=== PATIENT | female | born 1990 | race Caucasian/White ===

== ENCOUNTER 2020-06-07 14:04 | Outpatient (RCR) | payer OTHER, SELFPAY ==
--- NOTE | 2020-06-07 16:48 | PTOPEVAL ---
Thank you for referring Eloisa Brambila to [facility].? The patient is scheduled to be seen for therapy? ____x/week for ___ weeks. Please review, sign, date and return this plan of care DES. I agree with and certify that the following plan of care is medically necessary. Referring Physician Date Admitting Provider: Attending Provider: Dariusz Hatch PA-C Referring Provider: LawsonPT Outpatient Evaluation Start: 06/07/20 14:09 Freq: Status: Active Protocol: Document 06/07/20 14:05 [facility] (Rec: 06/07/20 15:15 [facility] [id number]) Therapy Assessment Status Assessment Status Assessment Status Evaluation Evaluation Information Problem Diagnosis bilateral knee pain Onset 05/19/20 Subjective Information patient reports no injury to Query Text:As Reported By Patient/ the bialteral knees. she Family reports the R knee has been worse for a longer time, but reports her L knee has been increased in pain for about 20 days. she reports she had swelling and tightness initially in the L knee but reports she is now having increased swelling and pain in the L knee over the last week . she reports she has the greatest issues with increased activities. she also reports the R knee has increased pain with sitting for a long time/ driving. Prior Level of Function Comments Additional Prior Level of Function patient reports she has been Comments limited in her participation in working out due to her pain . she reports she is also limited in how long she can drive or sit due to pain. Pain Assessment Timing of Pain Assessment Timing of Pain Assessment Assessment Pain Scale Pain Scale Used Numeric (1 - 10) Self Report Pain Assessment Bilateral Knee(s) Reported Pain Level 0 Greatest Pain Intensity 4 Pain Score Pain Score 0: Self Report Interventions Used Interventions Used By Clinicians Activity or ADL's,Education, Exercise Lower Extremity Range of Motion General Lower Extremity Range of Motion Gross Lower Extremity Range of Motion 0-135 degrees bilateral knee Comments AROM mobility Lower Extremity Muscle Strength Testing Hip Strength Bilateral Hip Flexion Strength
== END 2020-08-01 23:59 | disposition home or self-care (01) ==
LOC: CHSPT 14:04
PROVIDERS: Visit Provider Physician Assistant Medical
DX: M25.561 Pain in right knee (principal); M25.562 Pain in left knee; M62.9 Disorder of muscle, unspecified
CPT/HCPCS: 97110; 97140; 97161; 97530

== ENCOUNTER 2021-01-08 13:08 | Emergency (ER) | payer OTHER, SELFPAY ==
--- NOTE | ~2021-01-08 | XR_ITS ---
EXAMINATION: XR knee LT 3V DATE: 01/08/2021 14:09 INDICATION: Posterior left knee pain and swelling after jumping injury with pop TECHNIQUE: Anteroposterior, sunrise, flexed lateral and crosstable lateral views of the affected knee were obtained COMPARISON: None. FINDINGS: Alignment is normal. No fracture. No joint effusion/layering lipohemarthrosis. Soft tissues are unre markable. IMPRESSION: 1. Negative left knee radiographs. Reviewed, dictated and finalized at location A.
[2021-01-08 13:10] VITALS: BP 146/69; PULSE 99; RESP 20; TEMP 36.4; O2SAT 98
--- NOTE | 2021-01-08 13:12 | ED.LOWEXIN ---
HPI - Extremity Injury (Lower) General Chief Complaint: Extremity Injury, Lower Stated Complaint: L knee pain Source: patient and RN notes reviewed Mode of arrival: wheelchair Limitations: no limitations History of Present Illness complaint: knee injury Onset (ago): day(s) (1) Injury: Left: knee Type of Injury: hyperextension Place: home Severity: severe Relieving factors: nothing Exacerbating factors: weight bearing and movement Context: jumping Associated symptoms: snap/pop sensation and able to partially bear weight Other symptoms: none Treatments prior to arrival: cold therapy Related Data Allergies Allergy/AdvReac Type Severity Reaction Status Date / Time amoxicillin AdvReac Intermediate severe Verified 03/13/19 13:39 nausea and vomiting Review of Systems Review of Systems: All systems reviewed & are unremarkable except as noted in HPI and below PMFSH Past Medical History Medical History (Updated 01/08/21 @ 15:48 by Ric Rizvi MD) No active medical problems Surgical History Surgical History (Updated 01/08/21 @ 15:48 by Ric Rizvi MD) H/O dilation and curettage Family History Family History Father Family history of rheumatoid arthritis Other Diabetes mellitus Social History Social History Smoking status: Current every day smoker Alcohol intake: current Exam Const: General: healthy appearing and no acute distress Nutritional Appearance: well nourished Orientation/consciousness: patient oriented x3 Other: female nurse in room during examination. HENMT: Head: normal to inspection Ears: external ears normal Eyes: General: appearance normal, both eyes and all related structures Conjunctivae: conjunctivae normal Pupils: Equal, round and reactive pupils present EOM: EOMs intact bilaterally Neck: Neck: normal visual inspection and no lymphadenopathy Resp: Effort & Inspection: normal respiratory effort Auscultation: clear to auscultation bilaterally Cardio: Rate: regular rate Rhythm: regular rhythm GI: GI Palp: Yes Soft to palpation and No Tenderness to palpation present (GI) Auscultation: normal bowel sounds Back/Spine/Pelvis: Cervical Spine: cervical ROM normal Thoracic/Lumbar Spine: thoraco-lumbar ROM normal Skin: General skin exam: normal color Rashes: no rashes Neuro: General: patient oriented x3, moves all extremities and no focal motor deficits Speech: normal speech Extrem: General: normal to inspection and no pedal edema Left lower extremity: knee Details: tenderness Location: of the popliteal fossa (severe); not of the medial joint line and not of the lateral joint line, swelling Location: of the popliteal fossa, knee ligament exam normal and Amalia's Test Details: negative medially and laterally Psych: Appearance: grossly normal and well kempt Mental Status: mental status grossly normal Affect: normal affect Attitude: cooperative Thought content: Yes Normal thought content present Course Vital Signs Vital signs: Vital Signs Temperature 36.4 C 01/08/21 13:10 Pulse Rate 99 01/08/21 13:10 Respiratory Rate 20 01/08/21 13:10 Blood Pressure 146/69 H 01/08/21 13:10 Pulse Oximetry 98 01/08/21 13:10 Temperature 36.4 C 01/08/21 13:10 Pulse Rate 99 01/08/21 13:10 Respiratory Rate 15 01/08/21 14:41 Blood Pressure 146/69 H 01/08/21 13:10 Pulse Oximetry 98 01/08/21 13:10 Discharge Plan Discharge Clinical Impression: Left knee sprain Qualifiers: Encounter type: initial encounter Involved ligament of knee: unspecified ligament Qualified Code(s): S83.92XA - Sprain of unspecified site of left knee, initial encounter Patient Disposition: Home, Self-Care Condition: Stable Instructions: Knee Sprain (ED) Additional Instructions: use crutches as needed. Recommend you use a knee immobilizer. Follow
[2021-01-08] MEDS: KETOROLAC (*BKC) 60 MG/2 ML VIAL IM (14:27)
[2021-01-08 14:41] VITALS: RESP 15
== END 2021-01-08 14:44 | disposition home or self-care (01) ==
PROVIDERS: Emergency Provider Emergency Medicine; PCP Family Medicine
DX: S83.92XA Sprain of unspecified site of left knee, initial encounter (principal)
CPT/HCPCS: 73562; 96372; 99283; J1885

== ENCOUNTER 2021-01-13 06:50 | Outpatient (CLI) | payer OTHER, SELFPAY ==
--- NOTE | ~2021-01-13 | MR_ITS ---
EXAMINATION: MR knee LT wo con DATE: 01/13/2021 07:43 INDICATION: Left knee pain. TECHNIQUE: Magnetic resonance imaging (MRI) of the left knee was performed without intravenous contra st. Sequences included axial PD-weighted FS FSE, coronal PD-weighted FSE and PD-weighted FS FSE, sagi ttal PD-weighted FSE, and sagittal T2-weighted FS FSE. COMPARISON: Left knee radiographs 01/08/2021 FINDINGS: Medial compartment: Medial meniscus is normal. Medial compartment cartilage is normal. Lateral compartment: There is a vertical tear of body of lateral meniscus. Lateral compartment cartilage is normal. Patellofemoral compartment: Patellar cartilage is normal. Trochlear cartilage is normal. Ligaments and tendons: The anterior and posterior cruciate ligaments are normal. Medial collateral ligament is normal. There are changes of prior sprain of fibular collateral ligament characterized by increased signal intensi ty proximally. The extensor mechanism is normal. Fluid: There is a small knee joint effusion. There is trace fluid in a Rosario's cyst. There is mild superfici al infrapatellar bursitis. IMPRESSION: 1. Vertical tear of body of lateral meniscus. 2. Small knee joint effusion. Reviewed, dictated and finalized at location A.
== END 2021-01-13 06:51 | disposition home or self-care (01) ==
LOC: CHSIMG 06:51
PROVIDERS: PCP Family Medicine; Visit Provider Orthopaedic Surgery
DX: M25.562 Pain in left knee (principal)
CPT/HCPCS: 73721

== ENCOUNTER 2021-02-28 01:14 | Day surgery (SDC) | payer OTHER, SELFPAY ==
[2021-02-28] VITALS (7 sets, daily range): BP systolic 110–120; BP diastolic 70–86; PULSE 58–83; RESP 10–20; TEMP 36.1–36.6; O2SAT 97–100; BMI 29.7
--- NOTE | 2021-02-28 07:19 | WPDHPUPDATE1 ---
History and Physical Update Update Date/Time: 02/28/21 07:19 History and Physical has been reviewed, including an updated exam of the patient. There are NO changes in the patient's condition. Risks, benefits, and alternatives have been discussed and questions answered. Patient agrees to proceed with procedure.
--- NOTE | 2021-02-28 12:08 | P.PNAN_ITS ---
Anes - Initial Pre Proc Eval Procedure: Operation Date: 02/28/21 13:30 Proposed Procedures p Left Knee Arthroscopy, Proceed As Indicated(Left) - Justin Gonzalez MD Date/Time: 02/28/21 12:08 Surgeon: Justin Gonzalez MD Pre Op Diagnosis: Left knee lateral meniscus tear Patient Data Age: 30 Gender: F Height: 1.65 m Weight: 82 kg Allergies Allergy/AdvReac Type Severity Reaction Status Date / Time amoxicillin AdvReac Severe Nausea and Verified 02/26/21 12:04 Vomiting Home Medications Medication Instructions Recorded Confirmed Type No Home Medications 02/26/21 02/26/21 History Patient hx anesthesia problems: none Family hx anesthesia problems: none PMFSH Past Medical History Medical History Left knee pain No active medical problems Surgical History Surgical History H/O dilation and curettage History of wisdom tooth extraction Family History Family History Father Family history of rheumatoid arthritis Other Diabetes mellitus Vaginal cancer Social History Social History Smoking packs per day: 0.25 Smoking cigarettes per day: 5.0 Years smoked: 10 Smoking pack-years: 2.50 Smoking status: Light tobacco smoker Tobacco type: cigarettes Second hand tobacco smoke exposure: No Alcohol intake: current Alcohol use details: 20 per month Substance use: never Substance use type: does not use Living arrangements: with family Additional living arrangements comments: [facility] [phone] Additional occupation/education comments: [employer] Gender identity (if verbalized by the patient): Female Sexual Orientation (if Verbalized by the Patient): Straight or Heterosexual Spiritual care concerns: No Anes - Eval Final PreProcedure Day of Procedure 02/28/21 12:08 Patient weight: overweight Heart: regular rate and rhythm Lungs: clear to auscultation Airway: Mallampati scale class II Neurological: alert and oriented Last oral intake: >/= 8 hours ASA classification: II Emergent: no Anesthetic plan: proceed Anesthesia type and monitoring: general LMA and standard monitoring Informed Consent: The patient's anesthetic plan and its attendant risks and benefits were discussed with the patient/family/POA. Questions were solicited and answers provided to the satisfaction of the patient/family/POA.
[2021-02-28] MEDS: ACETAMINOPHEN 500 MG TABLET 1000 MG PO (12:46)
[2021-02-28] MEDS: CELECOXIB 200 MG CAPSULE PO (12:47)
[2021-02-28] MEDS: LACTATED RINGERS 1,000 ML 30 ML IV CONT ×2 (13:03→14:45)
[2021-02-28] MEDS: ceFAZolin 2 GM/D5W 50 ML 2 GM/50 ML BAG IVPB (13:27)
--- NOTE | 2021-02-28 13:29 | PM.IMHP ---
H&P: HPI History of Present Illness Date/Time: 02/28/21 13:29 30 year old pt presents today with Lt knee pain, she states that she was doing some exercises on 01/07/21-2d post injury, and did a jump and came down on the knee wrong felt a pop in the posterior aspect of the knee followed by extreme pain. She stated she went to the ER on 01/08/21 d/t not being able to weight bear on the knee at that time. The ER did an xray and gave the pt. an anti-inflammatory , instructed to use crutches and f/u with Ortho. Pt. states that this has occurred about 6-8 months ago with pain in the knee with swelling. Pt. here had an MRI and wants to discuss the next POC. Involved knee: left Onset: sudden Location of pain: posterior Pain scale (0-10): 7 Character: throbbing and other (sharp at times. ) Timing of pain: constant Exacerbated by: weight bearing, stairs and prolonged activity Relieved by: elevation, ice, rest, NSAIDs and other (crutches ) Associated symptoms: Reports swelling and instability History of occupational/recreational activity with repetitive motion: Yes History of prior knee injury: Yes Date: 01/07/21 Chief Complaint: LEFT KNEE PAIN Review of Systems Review of Systems: All systems reviewed & are unremarkable except as noted in HPI and below PMFSH Past Medical History Medical History Left knee pain No active medical problems Surgical History Surgical History H/O dilation and curettage History of wisdom tooth extraction Family History Family History Father Family history of rheumatoid arthritis Other Diabetes mellitus Vaginal cancer Social History Social History Smoking packs per day: 0.25 Smoking cigarettes per day: 5.0 Years smoked: 10 Smoking pack-years: 2.50 Smoking status: Light tobacco smoker Tobacco type: cigarettes Second hand tobacco smoke exposure: No Alcohol intake: current Alcohol use details: 20 per month Substance use: never Substance use type: does not use Living arrangements: with family Additional living arrangements comments: [facility] [phone] Additional occupation/education comments: [employer] Gender identity (if verbalized by the patient): Female Sexual Orientation (if Verbalized by the Patient): Straight or Heterosexual Spiritual care concerns: No Meds Home Medications and Allergies Home Medications Medication Instructions Recorded Confirmed Type No Home Medications 02/26/21 02/26/21 History Allergies Allergy/AdvReac Type Severity Reaction Status Date / Time amoxicillin AdvReac Severe Nausea and Verified 02/28/21 12:43 Vomiting Vital Signs Vital Signs - 24 hr 02/28/21 12:24 Temperature 36.6 C Pulse Rate 75 Respiratory Rate 16 Blood Pressure 113/70 Pulse Oximetry 100 Exam Const: General: healthy appearing and no acute distress Nutritional Appearance: well nourished Orientation/consciousness: patient oriented x3 Other: female nurse in room during examination. HENMT: Head: normal to inspection Ears: external ears normal Eyes: General: appearance normal, both eyes and all related structures Conjunctivae: conjunctivae normal Pupils: Equal, round and reactive pupils present EOM: EOMs intact bilaterally Neck: Neck: normal visual inspection and no lymphadenopathy Resp: Effort & Inspection: normal respiratory effort Auscultation: clear to auscultation bilaterally Cardio: Rate: regular rate Rhythm: regular rhythm GI: GI Palp: Yes Soft to palpation and No Tenderness to palpation present (GI) Auscultation: normal bowel sounds Back/Spine/Pelvis: Cervical Spine: cervical ROM normal Thoracic/Lumbar Spine: thoraco-lumbar ROM normal Skin: General skin exam: normal color Rashe
[2021-02-28] MEDS: BUPIVACAINE HCL 0.5% PF 30 ML VIAL INFILTRATE (13:57)
--- NOTE | 2021-02-28 14:50 | P.OP_ITS ---
Procedure Note - Detailed Date of Procedure 02/28/21 Pre-op Diagnosis Left knee lateral meniscus tear Post-op Diagnosis same Procedure Performed LEFT KNEE SCOPE Surgeon Justin Gonzalez MD Anesthesia general Description of Procedure PATIENT WAS TAKEN TO THE OR. LEFT LEG WAS PREPPED AND DRAPED STERILE. TROCARS W ERE PLACED IN THE USUAL FASHION. CAMERA WAS INTRODUCED. THERE WAS NO CHONDROMALACIA TO THE PATELLA FEMORAL JOINT. THERE WAS A LOT OF SYNOVITIS IN ALL COMPARTMENTS. THE MEDIAL COMPARTMENT SHOWED NO CHONDROMALACIA TO THE MEDIAL FEMORAL CONDYLE OR MEDIAL PLATEAU. A SHAVER WAS USED TO PREFORM A CHONDROPLASTY. THERE WAS NO TEAR TO THE MEDIAL MENISCUS. THE ACL WAS INTACT. THERE WERE TEARS TO THE LATERAL MENISCUS. THERE WAS A TEAR TO THE MAIN BODY OF THE MENISCUS AND ONE TO THE ROOT. THE ROOT TER ALSO HAD A POSTERIOR COMPONENT WHICH WAS EXTENDING DISTAL INTO THE CAPSULAR RECESS. THIS WAS EXTRACTED AND WAS EXCISED WITH A BITER AND A SHAVER DOWN TO A SMOOTH BASE. THE REST OF THE TEAR WAS ALSO RESECTED DOWN TO A SMOOTH BASE. THE LATERAL COMPARTMENT HAD MINIMAL CHONDROMALACIA. CHONDROPLASTY WAS PREFORMED. A SYNOVECTOMY WAS PREFORMED WELL. THE PATELLO FEMORAL JOINT HAD A NEGLIGENT AMOUNT OF CHONDROMALACIA. SYNOVECTOMY WAS PREFORMED IN THE SUPERIOR MEDIAL COMPARTMENT. THE WOUNDS WERE A PPROXIMATED WITH 4.0 NYLON. STERILE DRESSING WAS APPLIED. PATIENT WAS EXTUBATED. Estimated Blood Loss 5 Complications No immediate complications Condition stable Disposition PACU
[2021-02-28] MEDS: fentaNYL CITRATE INJ (*CRX) 100 MCG/2 ML VIAL 25 MCG IV PUSH ×6 (14:52→15:38)
[2021-02-28] MEDS: oxyCODONE HCL (*CRX) 5 MG TAB IR PO (16:51)
== END 2021-02-28 17:05 | disposition home or self-care (01) ==
PROVIDERS: PCP Family Medicine; Visit Provider Orthopaedic Surgery
PROC: (CPT 29870; principal; 2021-02-28 13:30)
DX: S83.282A Other tear of lateral meniscus, current injury, left knee, initial encounter (principal); X50.0XXA Overexertion from strenuous movement or load, initial encounter; Y93.B9 Activity, other involving muscle strengthening exercises; M94.262 Chondromalacia, left knee; M65.862 Other synovitis and tenosynovitis, left lower leg; F17.210 Nicotine dependence, cigarettes, uncomplicated
CPT/HCPCS: 29881; A9270; J0690; J2250; J3010; J7120

== ENCOUNTER 2021-03-19 14:07 | Outpatient (RCR) | payer OTHER, SELFPAY ==
--- NOTE | 2021-03-19 16:21 | PTOPEVAL ---
Thank you for referring Eloisa Brambila to [facility].? The patient is scheduled to be seen for therapy? _2___x/week for 8 visits. Please review, sign, date and return this plan of care DES. I agree with and certify that the following plan of care is medically necessary. Referring Physician Date Admitting Provider: Attending Provider: Justin Gonzalez MD Referring Provider: *PT Outpatient Evaluation Start: 03/19/21 14:12 Freq: Status: Active Protocol: Document 03/19/21 14:12 [facility] (Rec: 03/19/21 14:45 [facility] [id number]) Therapy Assessment Status Assessment Status Assessment Status Evaluation Outpatient Past Medical History Neurological History Hx Neurological Disorders No Significant History Cardiovascular History Hx Cardiac Disorders No Significant History Respiratory History Hx Respiratory Disorders No Significant History Gastrointestinal History Hx Gastrointestinal Disorders No Significant History Genitourinary History Hx Genitourinary Disorders No Significant History Musculoskeletal History Hx Orthopedic Surgery Yes: RT ANKLE FX; MAJOR WRIST SPRAIN IN PAST Hx Other Musculoskeletal Disorders Yes: LT KNEE MENISCUS Hematological History Hx Hematological Disorders No Significant History Endocrine History Hx Endocrine Disorders No Significant History HEENT History Hx HEENT Disorders No Significant History Integumentary History Hx Skin Disorders No Significant History Reproductive History Hx Other Reproductive Disorders Yes: D&C MISSED AB IN PAST Psychosocial History Hx Psychiatric Disorders No Significant History Pain History History of Any Previous or Ongoing No Significant History Instance of Pain Anesthesia History Hx Anesthesia Reactions No Significant History Evaluation Information Problem Diagnosis left knee arthroscopy Onset 02/28/21 Subjective Information Pt. reports that she underwent Query Text:As Reported By Patient/ knee surgery on 02/28/21. Pt. Family reports she has been exercising at home since surgery. She reports that bending causes the most pain. She reports that she notices tightness in the back of the entire left leg. She states that she still notices alot of swelling in the left knee. She reports that her goal for therapy is to be able to return to weight lifting and running. Prior Level of Function Comments
--- NOTE | 2021-04-13 09:14 | PTOPEVAL ---
Thank you for referring Eloisa Brambila to [facility].? The patient is scheduled to be seen for therapy? __2__x/week for 4 visits. Please review, sign, date and return this plan of care DES. I agree with and certify that the following plan of care is medically necessary. Referring Physician Date Admitting Provider: Attending Provider: Justin Gonzalez MD Referring Provider: *PT Outpatient Evaluation Start: 03/19/21 14:12 Freq: Status: Active Protocol: Document 04/13/21 08:05 [facility] (Rec: 04/13/21 09:13 [facility] [id number]) Therapy Assessment Status Assessment Status Assessment Status Progress Outpatient Past Medical History Neurological History Hx Neurological Disorders No Significant History Cardiovascular History Hx Cardiac Disorders No Significant History Respiratory History Hx Respiratory Disorders No Significant History Gastrointestinal History Hx Gastrointestinal Disorders No Significant History Genitourinary History Hx Genitourinary Disorders No Significant History Musculoskeletal History Hx Orthopedic Surgery Yes: RT ANKLE FX; MAJOR WRIST SPRAIN IN PAST Hx Other Musculoskeletal Disorders Yes: LT KNEE MENISCUS Hematological History Hx Hematological Disorders No Significant History Endocrine History Hx Endocrine Disorders No Significant History HEENT History Hx HEENT Disorders No Significant History Integumentary History Hx Skin Disorders No Significant History Reproductive History Hx Other Reproductive Disorders Yes: D&C MISSED AB IN PAST Psychosocial History Hx Psychiatric Disorders No Significant History Pain History History of Any Previous or Ongoing No Significant History Instance of Pain Anesthesia History Hx Anesthesia Reactions No Significant History Evaluation Information Problem Diagnosis left knee arthroscopy Onset 02/28/21 Subjective Information Pt. reports that she is doing Query Text:As Reported By Patient/ better since initial Family evaluation. She reports that ROM has improved and she notices improve strength. She states that she still has difficulty with going down steps or squatting. She reports that she would like to continue PT focusing on improved comfort with stairs and squatting activities. Pain Assessment Timing of Pain Assessment Timing of Pain Assessment Pre-Treatment Pain Scale Pain Scale Used Numeric (1 - 10) Self Report Pain Assessment Left Knee(s) Reported Pain
--- NOTE | 2021-05-02 17:17 | PTOPEVAL ---
Thank you for referring Eloisa Brambila to [facility].? The patient is scheduled to be seen for therapy? ____x/week for ___ weeks. Please review, sign, date and return this plan of care DES. I agree with and certify that the following plan of care is medically necessary. Referring Physician Date Admitting Provider: Attending Provider: Justin Gonzalez MD Referring Provider: *PT Outpatient Evaluation Start: 03/19/21 14:12 Freq: Status: Active Protocol: Document 05/02/21 13:35 [facility] (Rec: 05/02/21 17:15 [facility] [id number]) Therapy Assessment Status Assessment Status Assessment Status Re-evaluation Outpatient Past Medical History Neurological History Hx Neurological Disorders No Significant History Cardiovascular History Hx Cardiac Disorders No Significant History Respiratory History Hx Respiratory Disorders No Significant History Gastrointestinal History Hx Gastrointestinal Disorders No Significant History Genitourinary History Hx Genitourinary Disorders No Significant History Musculoskeletal History Hx Orthopedic Surgery Yes: RT ANKLE FX; MAJOR WRIST SPRAIN IN PAST Hx Other Musculoskeletal Disorders Yes: LT KNEE MENISCUS Hematological History Hx Hematological Disorders No Significant History Endocrine History Hx Endocrine Disorders No Significant History HEENT History Hx HEENT Disorders No Significant History Integumentary History Hx Skin Disorders No Significant History Reproductive History Hx Other Reproductive Disorders Yes: D&C MISSED AB IN PAST Psychosocial History Hx Psychiatric Disorders No Significant History Pain History History of Any Previous or Ongoing No Significant History Instance of Pain Anesthesia History Hx Anesthesia Reactions No Significant History Evaluation Information Problem Diagnosis left knee arthroscopy Onset 02/28/21 Subjective Information patient reports she is having Query Text:As Reported By Patient/ new swelling and pain in the L Family knee for about 2 weeks. she reports since she did a single leg press she has had some swelling since the next day. she reports she went to the surgeon who offered to drain the fluid, but patient declined. she is worried there is something that did not heal from her surgery. Pain Assessment Timing of Pain Assessment Timing of Pain Assessment Assessment Pain Scale Pain Scale Used Numeric (1 - 10) Self Report Pain Assessment Left Knee(s) Reported P
--- NOTE | 2021-05-24 16:46 | PTOPEVAL ---
Thank you for referring Eloisa Brambila to [facility].? The patient is scheduled to be seen for therapy? ____x/week for ___ weeks. Please review, sign, date and return this plan of care DES. I agree with and certify that the following plan of care is medically necessary. Referring Physician Date Admitting Provider: Attending Provider: Justin Gonzalez MD Referring Provider: *PT Outpatient Evaluation Start: 03/19/21 14:12 Freq: Status: Active Protocol: Document 05/24/21 15:48 ACR (Rec: 05/24/21 16:32 ACR [id number]) Therapy Assessment Status Assessment Status Assessment Status Progress Outpatient Past Medical History Neurological History Hx Neurological Disorders No Significant History Cardiovascular History Hx Cardiac Disorders No Significant History Respiratory History Hx Respiratory Disorders No Significant History Gastrointestinal History Hx Gastrointestinal Disorders No Significant History Genitourinary History Hx Genitourinary Disorders No Significant History Musculoskeletal History Hx Orthopedic Surgery Yes: RT ANKLE FX; MAJOR WRIST SPRAIN IN PAST Hx Other Musculoskeletal Disorders Yes: LT KNEE MENISCUS Hematological History Hx Hematological Disorders No Significant History Endocrine History Hx Endocrine Disorders No Significant History HEENT History Hx HEENT Disorders No Significant History Integumentary History Hx Skin Disorders No Significant History Reproductive History Hx Other Reproductive Disorders Yes: D&C MISSED AB IN PAST Psychosocial History Hx Psychiatric Disorders No Significant History Pain History History of Any Previous or Ongoing No Significant History Instance of Pain Anesthesia History Hx Anesthesia Reactions No Significant History Evaluation Information Problem Diagnosis L knee arthroscopy Onset 02/28/21 Subjective Information Patient reports since she got Query Text:As Reported By Patient/ her knee drained last friday Family she has been feeling really good. She states that she still feels weak and is nervous about returning to the gym. She states that when she performs a squat it feels tight and like it is going to fill up with fluid again. Pain Assessment Timing of Pain Assessment Timing of Pain Assessment Assessment Pain Scale Pain Scale Used Numeric (1 - 10) Self Report Pain Assessment Left Knee(s) Reported Pain Level 0 Greatest Pain Intensity 5 Pain Score Pain Score 0: Self R
== END 2021-07-02 17:46 | disposition home or self-care (01) ==
LOC: CHSPT 14:07
PROVIDERS: Visit Provider Orthopaedic Surgery
DX: Z98.890 Other specified postprocedural states (principal)
CPT/HCPCS: 97014; 97016; 97110; 97161; 97530; G0283

== ENCOUNTER 2022-02-01 12:53 | Outpatient (CLI) | payer OTHER, SELFPAY ==
[2022-02-01 13:04] LABS: Basophils Absolute Auto 0.05 K/mm3 (0.00-0.10); Eosinophils Absolute Auto 0.06 K/mm3 (0.02-0.50); Eosinophils Percent Auto 1.1 % (1.0-6.0); Hematocrit 43.1 % (35.0-49.0); Hemoglobin 14.4 g/dL (12.0-15.0); Immature Granulocyte Absolute 0.03 K/mm3 (0.00-0.00); Immature Granulocyte Percent A 0.6 % (0.0-0.0); Lymphocytes Absolute Auto 0.89 K/mm3 (1.10-4.50); Mean Corpuscular HGB Conc 33.4 g/dL (32.0-36.0); Mean Corpuscular Hemoglobin 30.2 pg (27.0-31.0); Mean Corpuscular Volume 90.4 fL (78.0-102.0); Mean Platelet Volume 9.1 fl (9.2-11.8); Monocytes Absolute Auto 0.35 K/mm3 (0.10-0.90); Monocytes Percent Auto 6.7 % (2.0-11.0); Neutrophils Absolute Auto 3.9 K/mm3 (1.7-7.2); Neutrophils Percent Auto 73.6 % (50.0-70.0); Platelet Count Result 269 K/mm3 (150-420); Red Blood Count 4.77 M/mm3 (4.20-5.40); Red Cell Distribution Width 12.3 % (11.6-14.4); White Blood Count 5.2 K/mm3 (4.8-10.8)
[2022-02-01 13:48] LABS: Alanine Aminotransferase 28 U/L (14-59); Albumin Level 4.3 g/dL (3.4-5.0); Alkaline Phosphatase 102 U/L (46-116); Anion Gap 8 mmol/L (8-16); Aspartate Amino Transferase 18 U/L (15-37); Bilirubin,Total 0.4 mg/dL (0.00-1.00); Blood Urea Nitrogen 15 mg/dL (7-18); Calcium 8.8 mg/dL (8.5-10.1); Carbon Dioxide 28 mmol/L (21-32); Chloride 101 mmol/L (98-108); Estimated Glomerular Filt Rate > 60; Glucose 97 mg/dL (70-99); Osmolality Calculated 284 mOsm/kg (285-295); Potassium 4.2 mmol/L (3.5-5.1); Sodium 137 mmol/L (136-145); Total Protein 7.6 g/dL (6.4-8.2)
== END 2022-02-01 12:54 | disposition home or self-care (01) ==
LOC: CHSLAB 12:55
PROVIDERS: PCP Family Medicine; Visit Provider Family Medicine
DX: R53.83 Other fatigue (principal)
CPT/HCPCS: 36415; 80053; 84443; 85025

== ENCOUNTER 2022-02-05 09:33 | Outpatient (CLI) | payer OTHER, SELFPAY ==
--- NOTE | ~2022-02-05 | XR_ITS ---
EXAMINATION: XR chest 2V 02/05/2022 10:41 INDICATION: Dyspnea PROCEDURE: 2 view chest COMPARISON: No prior studies for comparison. FINDINGS: The lungs are clear. The cardiomediastinal silhouette is within normal limits. There are no pleural effusions. There is no pneumothorax suspected. IMPRESSION: 1: NO ACUTE CARDIOPULMONARY DISEASE. Reviewed, dictated and finalized at location A.
== END 2022-02-05 09:34 | disposition home or self-care (01) ==
LOC: CHSIMG 09:35
PROVIDERS: PCP Family Medicine; Visit Provider Family Medicine
DX: J69.0 Pneumonitis due to inhalation of food and vomit (principal)
CPT/HCPCS: 71046

== ENCOUNTER 2022-02-21 12:58 | Outpatient (CLI) | payer OTHER, SELFPAY ==
--- NOTE | ~2022-02-21 | CT_ITS ---
EXAMINATION:CT diagnostic chest wo con DATE: 02/21/2022 13:20 INDICATION: Dyspnea. Chest pain. TECHNIQUE: Computed tomography (CT) of the chest was performed without intravenous contrast. Automate d exposure control and iterative reconstruction technique were employed. The dose-length product (DLP ) was 150.98 mGy-cm. COMPARISON: Chest 2 views 02/05/2022 FINDINGS: There is mild emphysema. There is minimal atelectasis in left lower lobe. No pleural effusi on. The heart size is normal. No pericardial effusion. There are no pathologically enlarged lymph nod es. There is mild thoracic spondylosis. IMPRESSION: 1. Mild emphysema. Reviewed, dictated and finalized at location A. IMPRESSION: 1. Mild emphysema.
== END 2022-02-21 12:59 | disposition home or self-care (01) ==
LOC: CHSIMG 13:01
PROVIDERS: PCP Family Medicine; Visit Provider Family Medicine
DX: J69.0 Pneumonitis due to inhalation of food and vomit (principal)
CPT/HCPCS: 71250

== ENCOUNTER 2022-03-01 12:13 | Outpatient (CLI) | payer OTHER, SELFPAY ==
[2022-03-04 21:12] LABS: Progesterone 19.3 ng/mL (***)
== END 2022-03-01 12:14 | disposition home or self-care (01) ==
LOC: CHSLAB 12:16
PROVIDERS: PCP Family Medicine; Visit Provider Obstetrics & Gynecology
DX: Z33.1 Pregnant state, incidental (principal)
CPT/HCPCS: 36415; 84144; 84702

== ENCOUNTER 2022-03-18 07:29 | Outpatient (CLI) | payer OTHER, SELFPAY ==
--- NOTE | ~2022-03-18 | US_ITS ---
EXAMINATION: US OB <=14 wk fetus w TV INDICATION: UNCERTAIN LMP TECHNIQUE: Sonography of the pelvis was performed by transabdominal and transvaginal techniques. COMPARISON: None. RESULT: Uterus: - Orientation: Anteverted - Size: 11.0 x 6.7 x 4.6 cm - Myometrium: Serpiginous anechoic area in the endometrium/myometrium of the left anterior front al region, approaching the second gestational tissues, may represent normal vascular tissue with or w ithout a small subgestational fluid collection. Gestation: - Intrauterine gestational sac: Single present - Yolk sac: Present. 2.4 mm. - Embryo: Single present. - [place] rump length: 0.75 cm, corresponding gestational age 6 weeks, 5 days -Gestational heart rate: present 126 bpm -Subgestational hematoma: Possible small collection as noted above. Right ovary: - Size : 2.5 x 2.2 x 2.0 cm - Normal sonographic appearance with physiologic follicles. Left ovary: - Size: 3.7 x 2.5 x 3.1 cm - Normal sonographic appearance with physiologic follicles. Pelvis free fluid: None. IMPRESSION: Single, live intrauterine gestation. Possible small subdural gestational fluid collection versus norm al adjacent vascular structures, consider short-term OB ultrasound follow-up. Estimated Gestational Age: 6 weeks, 5 days by crown rump length. NORMA by ultrasound 11/06/2022. Reviewed, dictated and finalized at location K. IMPRESSION: Single, live intrauterine gestation. Possible small subdural gestational fluid collection versus normal adjacent vascular structures, consider short-term OB u ltrasound follow-up. Estimated Gestational Age: 6 weeks, 5 days by crown rump length. NORMA by ultras ound 11/06/2022.
== END 2022-03-18 07:30 | disposition home or self-care (01) ==
LOC: CHSIMG 07:30
PROVIDERS: PCP Family Medicine; Visit Provider Obstetrics & Gynecology
DX: N92.6 Irregular menstruation, unspecified (principal)
CPT/HCPCS: 76801; 76817

== ENCOUNTER 2022-04-01 07:16 | Outpatient (CLI) | payer OTHER, SELFPAY ==
--- NOTE | ~2022-04-01 | US_ITS ---
EXAMINATION: US OB <=14 wk fetus w TV DATE: 04/01/2022 08:43 INDICATION: First trimester viability assessment and subchorionic hematoma follow-up TECHNIQUE: Real-time pelvic transabdominal and transvaginal ultrasound was performed. COMPARISON: 03/18/2022 FINDINGS: The uterus measures 10.1 x 7.2 x 6.0 cm. And iterative. There is an intrauterine gestation al sac. No subchorionic hematoma is identified. A yolk sac is identified. heart motion is ident ified measuring 176 beats per minute (bpm) by M-mode Doppler. The crown rump length measures 2. 2 cm , which correlates with an estimated gestational age of 9 weeks and 0 day(s) (+/-) 6 day(s). The right ovary measures 2.5 x 1.2 x 2.0 cm. The left ovary measures 3.9 x 2.2 x 2.6 cm. There is nor mal vascular flow in the ovaries. There is no free fluid in the pelvis. IMPRESSION: 1. Live intrauterine with an estimated gestational age of 9 weeks and 0 day(s) (+/-) 6 day( s) and an estimated delivery date of 11/04/2022. 2. No persistent subchorionic hematoma identified. Reviewed, dictated and finalized at location B. IMPRESSION: 1. Live intrauterine with an estimated gestational age of 9 weeks and 0 day(s) (+/-) 6 day(s) and an estimated delivery date of 11/04/2022. 2. No persistent subchorionic hematoma identified.
== END 2022-04-01 07:17 | disposition home or self-care (01) ==
LOC: CHSIMG 07:18
PROVIDERS: PCP Family Medicine; Visit Provider Obstetrics & Gynecology
DX: O36.80X0 Pregnancy with inconclusive fetal viability, not applicable or unspecified (principal)
CPT/HCPCS: 76801; 76817

== ENCOUNTER 2022-06-24 07:44 | Outpatient (CLI) | payer OTHER, SELFPAY ==
--- NOTE | ~2022-06-24 | US_ITS ---
EXAMINATION: US OB /maternal detail DATE: 06/24/2022 08:37 INDICATION: Second trimester anatomic survey TECHNIQUE: Real-time ultrasound of the pelvis was performed. COMPARISON: 04/01/2022 FINDINGS: There is a single living fetus in variable presentation. The placenta is anterior and 3.7 cm from the internal cervical os. The cervical length is 3.5 cm. heart rate is 145 beats per minute (bpm). cardiac activity and movement are noted. The amniotic fluid index is 11.6 cm which is n ormal (normal range: 9.5 cm to 21.4 cm). The following anatomy was identified as normal: 4 chamber heart 3 vessel cord cord insertion kidneys urinary bladder stomach spine diaphragm ventricles cisterna magna cerebellum The following biometric data were obtained: Biparietal diameter (BPD): 4.8 cm; head circumference (HC): 18.9 cm; abdominal circumference (AC): 17 .1 cm; femur length (FL): 3.7 cm. These measurements are concordant. Estimated weight is 446 g +/- 67 g, which correlates with the 92nd percentile when 11/06/2022 is used as estimated date of delivery. As single measurements, these parameters are each equal to the following estimated gestational ages w ith ranges of +/- 2 standard deviations: BPD: 20 weeks 3 days +/- 1 weeks 5 days. HC: 21 weeks 1 days +/- 1 weeks 3 days. AC: 22 weeks 0 days +/- 2 weeks 0 days. FL: 21 weeks 4 days +/- 1 weeks 6 days. estimated gestational age based solely on measurements from this exam is 21 weeks 2 days +/- 1 weeks 3 days. IMPRESSION: 1. Single living fetus in variable presentation. 2. Estimated weight is 446 g +/- 67 g, which correlates with the 92nd percentile when 11/06/2022 is used as estimated date of delivery. Reviewed, dictated and finalized at location A. [employer] IMPRESSION: 1. Single living fetus in variable presentation. 2. Estimated weight is 446 g +/- 67 g, which correlates with the 92nd per centile when 11/06/2022 is used as estimated date of delivery.
== END 2022-06-24 07:45 | disposition home or self-care (01) ==
LOC: CHSIMG 07:45
PROVIDERS: PCP Family Medicine; Visit Provider Obstetrics & Gynecology
DX: Z34.92 Encounter for supervision of normal pregnancy, unspecified, second trimester (principal)
CPT/HCPCS: 76805

== ENCOUNTER 2022-09-03 15:31 | Outpatient (RCR) | payer OTHER, SELFPAY ==
--- NOTE | 2022-09-04 14:08 | BUPTOPEVAL1 ---
Assessment and note entered by Kendall Tripp Evaluation Information Assessment Status Evaluation Diagnosis left hip pain Onset 06/03/23 Subjective Information Pt. states that she is currently 31 weeks . She began getting left sided hip/buttock pain at 15 weeks. She reports that the pain has worsened through the duration of her . she reports that pain is most notable after getting out of bed in the morning and getting out of a seated position. She reports that pain will also be increased with long periods of standing and walking. She states that she wakes from sleep due to her back pain. She states that her goal for therapy is to decrease her low back pain. Reported Pain Level Pain Score 3: Self Report Assessment PT Clinical Summary Pt. is a 32 year old female who enters the clinic with low back pain during . She presents with impaired postural awareness, impaired proximal l.e. strength, and pain on this date. Continued skilled PT is indicated in order to improve these areas to allow the pt. to be able to perform prolonged standing activities and to sleep with improve comfort. Plan of Care Interventions Hot Pack/Cold Pack,Manual Therapy,Neuro Re- education,Therapeutic Activities,Therapeutic Exercise PT Services Indicated Yes Treatment Frequency and 2x/week x 10 visits Duration These treatments will address the objective and functional deficits as defined above. The patient will be advanced safely and appropriately in order for the patient to progress towards his/her prior level of function. Additional exercises will be introduced and as well as a comprehensive home exercise program upon discharge, if needed, ?to ensure carryover of functional gains achieved in the clinic. This treatment plan has been reviewed and agreement upon by the patient.
--- NOTE | 2022-10-22 08:23 | PTOPDC ---
Assessment and note entered by JT File, PT Evaluation Information Assessment Status Discharge Diagnosis left hip pain Onset 06/03/23 Subjective Information patient reports she continues to have pain in the bilateral hips, and reports she knows it is brought on by her inability to get comfortable while sleeping. she reports she does feel better with the manual therapy and stretching. however, today is not a good day. Reported Pain Level Pain Score 7,7: Self Report Assessment PT Clinical Summary mrs. glez presents to skilled PT for her 10th skilled therapy visit. she has met only her goal for HEP performance. she continues to present with induced bilateral hip pain. she will DC therapy at this time due to lack of achievement of goals. she will continue with HEP on her own at home, and continue to work on IASTM to the bilateral buttocks/LE's. Plan of Care PT Services Indicated Yes
== END 2022-10-10 15:21 | disposition home or self-care (01) ==
LOC: CHSPT 15:31
PROVIDERS: Visit Provider Obstetrics & Gynecology
DX: M25.552 Pain in left hip (principal)
CPT/HCPCS: 97014; 97110; 97140; 97161; G0283

== ENCOUNTER 2022-09-20 07:15 | Outpatient (CLI) | payer OTHER, SELFPAY ==
--- NOTE | ~2022-09-20 | US_ITS ---
EXAMINATION: US OB follow up DATE: 09/20/2022 08:09 INDICATION: Evaluate growth TECHNIQUE: Real-time transabdominal obstetric ultrasound. FINDINGS: Comparison to multiple prior studies sequentially, with oldest reviewed study dated 022. There is a single living fetus in vertex presentation. The placenta is anterior without placenta pre via. cardiac activity and movement is noted with a heart rate of 155 beats per minute. T he amniotic fluid volume is normal . EMIL measures 9.7 cm. The following biometric data were obtained: BPD: 87mm corresponds to gestational age 35 weeks 1 days. Head circumference: 321mm corresponds to gestational age 36 weeks 2 days. Abdominal circumference: 310mm corresponds to gestational age 35 weeks 0 days. Femur length: 69mm corresponds to gestational age 35 weeks 4 days. Estimated weight: 2636 grams +/- 395grams, 92.8%.] IMPRESSION: 1. Single living intrauterine in vertex presentation with an estimated gestational age of 33 weeks 2 days by inititial ultrasound. Accelerated interval growth. Estimated weight is in the 92.8% for gestational age. 2. Normal placenta. Reviewed, dictated and finalized at location B. [employer] IMPRESSION: 1. Single living intrauterine in vertex presentation with an estimat ed gestational age of 33 weeks 2 days by inititial ultrasound. Accelerated inte rval growth. Estimated weight is in the 92.8% for gestational age. 2. Normal placenta.
== END 2022-09-20 07:16 | disposition home or self-care (01) ==
LOC: CHSIMG 07:16
PROVIDERS: PCP Family Medicine; Visit Provider Obstetrics & Gynecology
DX: O26.849 Uterine size-date discrepancy, unspecified trimester (principal); Z3A.33 33 weeks gestation of pregnancy
CPT/HCPCS: 76816

== ENCOUNTER 2022-11-08 12:51 | Outpatient (CLI) | payer OTHER, SELFPAY ==
[2022-11-08 14:00] LABS: HIV 1 P24 AG Negative (Negative); HIV 1/2 AB Negative (Negative)
== END 2022-11-08 12:52 | disposition home or self-care (01) ==
LOC: CHSLAB 12:54
PROVIDERS: PCP Family Medicine; Visit Provider Obstetrics & Gynecology
DX: Z36.89 Encounter for other specified antenatal screening (principal)
CPT/HCPCS: 36415; 86703

== ENCOUNTER 2022-11-11 06:07 | Inpatient (IN) | payer OTHER, SELFPAY ==
[2022-11-11] VITALS (87 sets, daily range): BP systolic 99–153; BP diastolic 48–121; PULSE 55–206; RESP 18; TEMP 36.5–36.7; O2SAT 81–100; BMI 35.6
[2022-11-11 07:17] LABS: Basophils Absolute Auto 0.1 K/mm3 (0.0-0.1); Eosinophils Absolute Auto 0.1 K/mm3 (0-0.3); Eosinophils Percent Auto 1.1 % (0-4.4); Hematocrit 36.7 % (37.0-47.0); Immature Granulocyte Absolute 0.05 K/mm3 (0.00-0.031); Immature Granulocyte Percent A 0.6 % (0-0.5); Lymphocytes Absolute Auto 2.13 K/mm3 (0.9-3.2); Lymphocytes Percent Auto 24.3 % (18.3-44.2); Mean Corpuscular HGB Conc 32.7 g/dl (32-36); Mean Corpuscular Hemoglobin 27.9 pg (26-34); Mean Corpuscular Volume 85.3 fl (80-100); Mean Platelet Volume 11.2 fl (7.4-10.4); Monocytes Absolute Auto 0.6 K/mm3 (0.1-0.6); Monocytes Percent Auto 6.7 % (2.6-8.5); Neutrophils Absolute Auto 5.8 K/mm3 (1.3-6.7); Neutrophils Percent Auto 66.3 % (45.5-73.1); Platelet Count Result 206 k/mm3 (150-375); Red Cell Distribution Width 14.6 % (11.5-14.5); White Blood Count 8.8 K/mm3 (4.5-10.0)
[2022-11-11] MEDS: LACTATED RINGERS 1,000 ML 125 ML IV CONT ×2 (07:25→09:10)
[2022-11-11] MEDS: OXYTOCIN 30 UNITS/NS 500 ML 30 UNITS/500 ML BAG IV CONT (07:25)
[2022-11-11] MEDS: fentaNYL CITRATE INJ (*CRX) 100 MCG/2 ML VIAL 50 MCG IV PUSH (08:21)
--- NOTE | 2022-11-11 08:49 | WPDOBADMIT ---
Obstetrics - Admit Note Admission Note: record reviewed. Additions to the history and/or subsequent changes in the physical findings follow. 32 y/o at 40 5/7 weeks here for scheduled induction of labor. GBS neg. AVSS NST reactive TOCO: contractions irregularly ABD soft, nontender, gravid, vertex EXT nontender Cervix 3-4/80/-2.. Vertex. AROM with clear fluid. A: IUP at term with favorable cervix, desiring induction of labor. P: Oxytocin.. Anticipate .
--- NOTE | 2022-11-11 09:29 | WPDANESEPPF ---
Anes - Initial Pre Proc Eval Date/Time: 11/11/22 09:29 Surgeon: Marquise Oneal MD Pre Op Diagnosis: Induction of Labor Patient Data Age: 32 Gender: F Height: 1.65 m Weight: 97 kg Last Vital Signs Pulse 79 11/11/22 09:26 BP 123/59 L 11/11/22 09:26 Pulse Ox 100 11/11/22 09:27 O2 Del Method Room Air 11/11/22 07:09 Allergies Allergy/AdvReac Type Severity Reaction Status Date / Time amoxicillin AdvReac Severe Nausea and Verified 04/05/22 10:03 Vomiting Home Medications Medication Instructions Recorded Confirmed Type prenat.vits,hong,lhl-ykom-eyops 1 tablet PO DAILY 10/07/22 11/11/22 History Laboratory Tests 11/11/22 11/11/22 11/11/22 06:58 06:58 06:59 WBC 8.8 K/mm3 K/mm3 (4.5-10.0) RBC 4.30 M/mm3 M/mm3 (4.2-5.4) Hgb 12.0 g/dL g/dL (12.0-15.0) Hct 36.7 % L % (37.0-47.0) MCV 85.3 fl fl (80-100) MCH 27.9 pg pg (26-34) MCHC 32.7 g/dl g/dl (32-36) RDW 14.6 % H % (11.5-14.5) Plt Count 206 k/mm3 k/mm3 (150-375) MPV 11.2 fl H fl (7.4-10.4) Immature Gran % (Auto) 0.6 % H % (0-0.5) Neut % (Auto) 66.3 % % (45.5-73.1) Lymph % (Auto) 24.3 % % (18.3-44.2) [place] % (Auto) 6.7 % % (2.6-8.5) Eos % (Auto) 1.1 % % (0-4.4) Baso % (Auto) 1.0 % % (0.2-1.2) Lymph # (Auto) 2.13 K/mm3 K/mm3 (0.9-3.2) [place] # (Auto) 0.6 K/mm3 K/mm3 (0.1-0.6) Eos # (Auto) 0.1 K/mm3 K/mm3 (0-0.3) Baso # (Auto) 0.1 K/mm3 K/mm3 (0.0-0.1) Abs Immat Gran (auto) 0.05 K/mm3 H K/mm3 (0.00-0.031) Absolute Neuts (auto) 5.8 K/mm3 K/mm3 (1.3-6.7) Absolute Nucleated RBC 0.0 K/mm3 K/mm3 (0.0-0.012) Nucleated RBC % 0.0 % % (0.0-0.2) RPR Pending Blood Type O Positive Antibody Screen Negative Patient hx anesthesia problems: other (one sided epid) Family hx anesthesia problems: none Results Review: All pre-operative results and documents have been reviewed as part of the pre-operative evaluation. [facility] Past Medical History Medical History Left knee pain No active medical problems Surgical History Surgical History H/O dilation and curettage History of wisdom tooth extraction Family History Family History Father Family history of rheumatoid arthritis Grandparent Diabetes mellitus Mother Diabetes mellitus Vaginal cancer Social History Social History Smoking packs per day: 0.25 Smoking cigarettes per day: 5.0 Years smoked: 10 Smoking pack-years: 2.50 Smoking status: Never smoker Tobacco type: cigarettes Second hand tobacco smoke exposure: No Alcohol intake: current Alcohol use details: 20 per month Substance use: never Substance use type: does not use Lack of Transportation: No Lack of Food: Never True Current Housing: I Have Housing Concerned About Future Housing: No Difficulty Paying Gas/Electric Bills: No Difficulty Paying for Meds: No Currently Unemployed: No Education: Master's Degree or Higher Difficulty w/ Childcare or Family Care: No Living arrangements: with family Additional living arrangements comments: [facility] [phone] Occupation/Education: occupation 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
[2022-11-11 10:36] LABS: Rapid Plasma Reagin Non-Reactive (NonReactive)
--- NOTE | 2022-11-11 12:43 | PM.OBPRVD ---
OB - Delivery Note Procedure Delivery date: 11/11/22 Procedure: Induction of labor with Induction method: Per Pitocin Protocol Delivery augmentation: Rupture of Membranes Delivery monitor: External FHT and External Uterine Route of delivery: Episiotomy description: None Laceration Description: Perineal - 1st Degree and Labial Delivery repair: vicryl (3-0) Specimen: Yes (cord blood) Quantitative Blood Loss (ml): 120 Anesthesia type: Epidural Disposition: PACU Complications: None Narrative: 32 y/o at 40 5/7 weeks gestation who presented to the hospital for induction of labor. Oxytocin was administered intravenously. Amniotomy was performed with return of clear fluid. She received an epidural for pain control. Her labor progressed and her cervix dilated completely. She pushed with good effort and delivered the 's head to the perineum, followed by the body. The nose and mouth were bulb suctioned. After a delay, the cord was clamped and cut. The infant was handed off the field. Cord blood was collected. The placenta delivered spontaneously and was grossly normal in appearance. The usual 3 vessel cord was noted. A first degree midline perineal laceration was sustained, as was a right labial laceration. These were reapproximated using 3 0 Vicryl in interrupted figure of eight fashion. Excellent hemostasis resulted as did excellent reapproximation of the normal anatomy. Needle and instrument counts were correct. The patient was taken to recovery room in stable condition. The infant went to the nursery in stable condition. I was present and scrubbed for the entire delivery. [place] Baby Date of : 11/11/22 Time of : 12:24 Weeks of gestation at delivery: 40 gender: Male Weight (pounds): 9 Weight (ounces): 4 presentation: vertex position: Right Occiput Anterior Placenta delivery description: Spontaneous and Normal Configuration Cord Vessel Description: 3 Vessels and Delayed Cord Clamping score one minute: 8 score five minutes: 9
--- NOTE | 2022-11-11 12:45 | PM.OBDSVD ---
DS: Admitting Diagnosis Discharge Date 11/13/22 Admitting Diagnosis IUP at 40 5/7 weeks DS: Discharge Diagnosis Discharge Diagnosis (1) (normal spontaneous vaginal delivery): Code(s): O80 - Encounter for full-term uncomplicated delivery Status: Acute OB - DS: Summary OB Procedures : None OB Procedures Intrapartum: Spontaneous Vag Delivery OB Procedures: : None Time Spent with Patient Time attestation: Total time spent providing and/or coordinating discharge services: DS: Data Data Completed and Pending Labs on day of discharge: Labs from last 24 hours 11/11/22 11/11/22 11/11/22 06:59 06:58 06:58 WBC 8.8 RBC 4.30 Hgb 12.0 Hct 36.7 L MCV 85.3 MCH 27.9 MCHC 32.7 RDW 14.6 H Plt Count 206 MPV 11.2 H Immature Gran % (Auto) 0.6 H Neut % (Auto) 66.3 Lymph % (Auto) 24.3 [place] % (Auto) 6.7 Eos % (Auto) 1.1 Baso % (Auto) 1.0 Lymph # (Auto) 2.13 [place] # (Auto) 0.6 Eos # (Auto) 0.1 Baso # (Auto) 0.1 Abs Immat Gran (auto) 0.05 H Absolute Neuts (auto) 5.8 Absolute Nucleated RBC 0.0 Nucleated RBC % 0.0 RPR Non-reactive Blood Type O Positive Antibody Screen Negative Discharge Plan Discharge Attending physician on discharge: Marquise Oneal Discharging Clinician: Marquise Oneal Patient Disposition: Home, Self-Care Activity: pelvic rest Diet: regular Discharge Instructions: Call or return if temperature above 100.4? F, increased abdominal pain, increased vaginal bleeding or any new problems. Stand Alone Forms: General Discharge Information Follow-up/Referrals: Marquise Oneal MD [Physician] - 6 Weeks Discharge Medications: New ibuprofen 600 mg tablet 600 mg PO Q6H PRN (Reason: cramps) Qty: 30 0RF ibuprofen 600 mg tablet 600 mg PO Q6H PRN (Reason: cramps) Qty: 30 0RF Continued prenat.vits,hong,wpj-tlig-aggyv Tablet 1 tablet PO DAILY Date of admission: 11/11/22 06:07 Primary Care Provider: Kendall Grajeda Admitting Provider: Marquise Oneal Attending physician on admission: Marquise Oneal Condition: Stable
[2022-11-11] MEDS: OXYTOCIN 30 UNITS/NS 500 ML 30 UNITS/500 ML BAG 125 UNITS IV CONT (13:20)
--- NOTE | 2022-11-11 14:58 | PC.NURSE ---
Patient transferred to post room #286 via wheelchair. Support person present. Oriented to unit, room, information board, rooming in, admission packet and security measures. Patient verbalizes understanding.
[2022-11-11] MEDS: IBUPROFEN 600 MG TABLET PO ×2 (15:36→21:49)
[2022-11-11] MEDS: BENZOCAINE 20% AER SPR (*SP) 56 GM CAN 1 SPRAY TOPICAL (15:37)
[2022-11-11] MEDS: WITCH HAZEL 40 PADS 1 PAD TOPICAL (15:37)
[2022-11-12 00:05] VITALS: BP 125/72; PULSE 71; RESP 18; TEMP 36.4; O2SAT 100
[2022-11-12] MEDS: ACETAMINOPHEN 325 MG TABLET 650 MG PO ×2 (03:57→17:24)
[2022-11-12 04:36] VITALS: BP 123/81; PULSE 70; RESP 18; TEMP 36.6; O2SAT 99
[2022-11-12 05:05] LABS: Hematocrit 30.7 % (37.0-47.0); Hemoglobin 10.2 g/dL (12.0-15.0)
[2022-11-12 07:55] VITALS: BP 113/71; PULSE 67; RESP 18; TEMP 36.7; O2SAT 100
[2022-11-12] MEDS: MULTIVIT/MIN/PREN/FOL AC/IRON TABLET 1 TAB PO (08:00)
[2022-11-12] MEDS: IBUPROFEN 600 MG TABLET PO ×2 (08:00→15:47)
[2022-11-12] MEDS: DOCUSATE SODIUM 100 MG CAPSULE PO (08:00)
--- NOTE | 2022-11-12 09:35 | WPDANLDPN2 ---
Anes-Prog Note L&D Date/Time: 11/12/22 09:35 Neuro status: Neuro function grossly intact. Vital Signs: Last Vital Signs Temp 36.7 C 11/12/22 07:55 Pulse 67 11/12/22 07:55 Resp 18 11/12/22 07:55 BP 113/71 11/12/22 07:55 Pulse Ox 100 11/12/22 07:55 O2 Del Method Room Air 11/11/22 20:01 Pain score (VAS): 0 I/O: Intake & Output 11/11/22 11/12/22 11/12/22 23:59 07:59 15:59 Output Total 200 Balance -200 Patient feedback: Patient satisfied with anesthetic care.
[2022-11-12 12:30] VITALS: BP 120/68; PULSE 72; RESP 18; TEMP 36.8; O2SAT 100
--- NOTE | 2022-11-12 12:37 | PM.OBPNVD ---
OB - PN: Subj Subjective Date/time seen: 11/12/22 12:37 Narrative: Pain OK. Would like circumcision for son. OB - PN: Obj Data Labs 11/12/22 04:00 Labs: Laboratory Results - last 24 hr 11/12/22 04:00 Hgb 10.2 L Hct 30.7 L OB - PN A/P Plan Comments: A: PPD#1, doing well. P: Reviewed circ. Routine care. Exam Psych: Other: AVSS ABD soft, nontender, fundus firm EXT nontender
[2022-11-12 20:30] VITALS: BP 119/82; PULSE 77; RESP 16; TEMP 36.7; O2SAT 100
--- NOTE | 2022-11-13 08:00 | PC.NURSE ---
PT introductions made and plan of care discussed per post , pain management, breast pumping and bottle feeding, daily care activities and pending discharge to home. PT and spouse both recipients of such care and no barriers to learning identified at this time. PT received such instructions per one to one discussion, mom baby care guide and demonstrations this shift. PT verbalized understanding of such care.
[2022-11-13 08:10] VITALS: BP 127/75; PULSE 81; RESP 16; TEMP 36.8; O2SAT 100
--- NOTE | 2022-11-13 09:10 | PM.OBPNVD ---
OB - PN: Subj Subjective Date/time seen: 11/13/22 09:10 Narrative: Pain OK. Would like to go home. OB - PN: Obj Data Labs 11/12/22 04:00 OB - PN A/P Plan Comments: A: PPD#2, doing well. P: Home to f/u 6 weeks. Exam Psych: Other: AVSS ABD soft, nontender, fundus firm EXT nontender
[2022-11-13 10:30] VITALS: PULSE 81; RESP 16; O2SAT 100
[2022-11-13] MEDS: IBUPROFEN 600 MG TABLET PO (10:55)
[2022-11-13] MEDS: ACETAMINOPHEN 325 MG TABLET 650 MG PO (10:56)
[2022-11-13] MEDS: MULTIVIT/MIN/PREN/FOL AC/IRON TABLET 1 TAB PO (10:56)
[2022-11-13] MEDS: DOCUSATE SODIUM 100 MG CAPSULE PO (10:56)
[2022-11-13] MEDS: LANOLIN (LANSINOH) 7.5 GM CREAM 1 APPLIC TOPICAL (10:58)
--- NOTE | 2022-11-13 13:55 | PC.NURSE ---
PT discharged to home ambulatory accompanied by her spouse and and taken to waiting car. Follow up appts confirmed
--- NOTE | 2022-11-13 15:32 | PC.NURSE ---
[id number] Breast pump provided by primary RN after delivery due to mothers desire to pump and feed only. Mother has questions regarding her pump, the flange fit, and milk supply. Instructions given on cleaning, care, usage, that there should be no pain, pumping schedule for milk production, collection, and storage of human milk. After discussing some questions, mother was encouraged to change the infants diaper, then call for a pump flange assessment and measurement. [id number] Patient was assessed for correct placement, flange size, to pump for comfort and nipple stretching/stimulation for adequate milk production every 3 hours (8 times in 24 hours) 1-2 times at night. Mother states she has been supplementing with formula and pumping 7 times in 24 hours. We discussed mothers questions and concerns. Reinforced understanding of milk production, transition of milk, signs of adequate intake, transition of stool, prevention/relief of engorgement, watching for feeding cues, the different methods of stimulating infant to feed 2-3 hours after the start of the last feeding, community resources, medication information reviewed per [facility] and when to call a provider using the resource of the mom and baby guide. Mother states she is concerned about her stress related to starting a new job in 8 weeks. Listened with a supportive ear as mother expressed her fears with tears. Mother was encouraged and reminded to reach out to resources. Mother voiced understanding of the education shared. Outpatient resource information was given to patient with office number in the mom/baby guide, feeding sheet, and a business card. Reported to the primary RN.
--- NOTE | 2022-11-13 16:14 | PC.NURSE ---
PT received discharge instructions per protocol and verbalized understanding of such care. Patient was given the opportunity to view the discharge video Mother & Baby Care, The First Two Weeks and to ask questions. Patient declined viewing the video and has been given the mother/baby guide for home reference.
== END 2022-11-13 13:55 | disposition home or self-care (01) | DRG 807 ==
LOC: ANHLDR 12:47 → ANHOB2 15:07
PROVIDERS: Admitting Provider Obstetrics & Gynecology; PCP Family Medicine; Visit Provider Obstetrics & Gynecology
DX: O99.62 Diseases of the digestive system complicating childbirth (principal); Z37.0 Single live birth; Z3A.40 40 weeks gestation of pregnancy; K21.9 Gastro-esophageal reflux disease without esophagitis; O70.0 First degree perineal laceration during delivery
CPT/HCPCS: 36415; 59025; 85014; 85018; 85025; 86592; 86850; 86900; 86901; A9270; J2590; J2795; J3010; J7120

== ENCOUNTER 2023-02-15 11:01 | Emergency (ER) | payer OTHER, SELFPAY ==
[2023-02-15 11:12] VITALS: BP 114/77; PULSE 73; RESP 16; TEMP 36.6; O2SAT 100
--- NOTE | 2023-02-15 11:22 | ED.FEMALEGU ---
HPI - Female Genitourinary General Chief complaint: Urogenital-Female Stated complaint: Female Urogenital Time Seen by Provider: 02/15/23 11:15 Source: patient Mode of arrival: ambulatory Limitations: no limitations History of Present Illness HPI Narrative: Marce is a 32-year-old female patient presenting to the clinic today with complaints of a tampon stuck in the vagina. She reports that she just started her menses yesterday and had put a tampon in however she for got that she had 1 in and inserted another tampon and this pushed the tampon further and to her vagina. She states that she has been and able to reach it for manual removal. She denies any purulent vaginal discharge, fever, chills, body aches, back pain, or urinary symptoms. Related Data Home Medications Medication Instructions Recorded Confirmed No Home Medications 02/15/23 02/15/23 Allergies Allergy/AdvReac Type Severity Reaction Status Date / Time amoxicillin AdvReac Intermediate Nausea and Verified 02/15/23 11:05 Vomiting Review of Systems Review of Systems: Pertinent positives per HPI. Patient denies any fever, chills, rash, headache, visual changes, dizziness, cough, runny nose, sore throat, shortness of breath, chest pain, palpitations, nausea, vomiting, diarrhea, constipation, abdominal pain, or any urinary issues. [facility] Past Medical History Medical History Left knee pain No active medical problems Surgical History Surgical History H/O dilation and curettage History of wisdom tooth extraction Family History Family History Father Family history of rheumatoid arthritis Grandparent Diabetes mellitus Mother Diabetes mellitus Vaginal cancer Social History Social History Smoking packs per day: 0.25 Smoking cigarettes per day: 5.0 Years smoked: 10 Smoking pack-years: 2.50 Smoking status: Never smoker Tobacco type: cigarettes Second hand tobacco smoke exposure: No Alcohol intake: current Alcohol use details: 20 per month Substance use: never Substance use type: does not use Lack of Transportation: No Lack of Food: Never True Current Housing: I Have Housing Concerned About Future Housing: No Difficulty Paying Gas/Electric Bills: No Difficulty Paying for Meds: No Currently Unemployed: No Education: Master's Degree or Higher Difficulty w/ Childcare or Family Care: No Living arrangements: with family Additional living arrangements comments: [employer] [phone] Occupation/Education: occupation 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 There is no relevant family history pertinent to the patient complaint. Exam Narrative: General: Well-developed, well nourished, in no apparent distress Head: Normocephalic, atraumatic. Cardio: Regular rate and rhythm, s1 and s2 normal, no murmur appreciated. Resp: Clear to auscultation bilaterally, no rhonchi, rales, wheezing or rubs. Abdomen: Soft, pliable, bowel sounds present in all quadrants, non-tender to palpation, no CVAT tenderness. : Pelvic exam performed with (Holli RUTHERFORD) at bedside. Verbal consent obtained from patient. Normal external female genitalia without lesions or masses, Urinary meatus: patent without discharge, Vagina: No lesions, masses, or discharge, tampon visualized posterior of cervix-removed using sponge forceps Cervix: pink without mass, lesions, discharge
== END 2023-02-15 11:26 | disposition home or self-care (01) ==
PROVIDERS: Emergency Provider Nurse Practitioner Family; PCP Family Medicine
DX: T19.2XXA Foreign body in vulva and vagina, initial encounter (principal); F17.210 Nicotine dependence, cigarettes, uncomplicated
CPT/HCPCS: 99212; G0463

== ENCOUNTER 2023-10-20 16:08 | Emergency (ER) | payer BC, SELFPAY ==
[2023-10-20 16:21] VITALS: BP 131/75; PULSE 82; RESP 16; TEMP 37.1; O2SAT 100
--- NOTE | 2023-10-20 16:28 | ED.URI ---
HPI - URI/Sore Throat General Chief Complaint: Upper Respiratory Infection Stated Complaint: Sore Throat Time Seen by Provider: 10/20/23 16:29 Source: patient, RN notes reviewed and old records reviewed Mode of arrival: ambulatory Limitations: no limitations History of Present Illness HPI Narrative: 33-year-old female to [facility] complaint of sore throat for 5 days. Patient has attempted to treat at home with salt water gargles without relief. Patient denies fevers, headache, or gi complaints. Patient denies pertinent past history. Patient able tolerate fluids by mouth. Patient also c/o bilateral breast pain, swelling. Pt endorses that she has recently DCd . Related Data Allergies Allergy/AdvReac Type Severity Reaction Status Date / Time amoxicillin AdvReac Intermediate Nausea and Verified 10/20/23 16:26 Vomiting Review of Systems Review of Systems: All systems reviewed & are unremarkable except as noted in HPI and below Constitutional: Constitutional: Reports as per HPI and Denies fever(s) Eyes: Eyes: Reports no additional eye complaints ENT: Reports as per HPI and Reports sore throat ( Five days per patient) Cardiovascular: Cardiovascular: Reports no additional cardiovascular complaints, Denies chest pain and Denies dyspnea Respiratory: Respiratory: Reports no additional respiratory complaints, Denies cough and Denies dyspnea Musculoskeletal: Musculoskeletal: Reports no additional musculoskeletal complaints Integumentary/Breasts: Skin/Breast: Reports as per HPI, Reports swelling ( bilateral), Reports breast pain ( bilateral) and Reports erythema ( bilateral) Neurologic: Reports system reviewed and no additional complaints, except as documented Psychiatric: Psychiatric: Reports no additional psychiatric complaints [facility] Past Medical History Medical History Left knee pain No active medical problems Surgical History Surgical History H/O dilation and curettage History of wisdom tooth extraction Family History Family History Father Family history of rheumatoid arthritis Grandparent Diabetes mellitus Mother Diabetes mellitus Vaginal cancer Social History Social History Smoking packs per day: 0.25 Smoking cigarettes per day: 5.0 Years smoked: 10 Smoking pack-years: 2.50 Smoking status: Never smoker Tobacco type: cigarettes Second hand tobacco smoke exposure: No Alcohol intake: current Alcohol use details: 20 per month Substance use: never Substance use type: does not use Lack of Transportation: No Lack of Food: Never True Current Housing: I Have Housing Concerned About Future Housing: No Difficulty Paying Gas/Electric Bills: No Difficulty Paying for Meds: No Currently Unemployed: No Education: Master's Degree or Higher Difficulty w/ Childcare or Family Care: No Living arrangements: with family Additional living arrangements comments: [employer] [phone] Occupation/Education: occupation 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 There is no relevant family history pertinent to the patient complaint. Exam Const: General: cooperative, healthy appearing, comfortable, no acute distress, alert and well nourished Nutritional Appearance: well nourished Orientation/consciousness: patient oriented x3 Limitations: no limitations HENMT: Head: normal to inspection Ears: external e
== END 2023-10-20 17:08 | disposition home or self-care (01) ==
PROVIDERS: Emergency Provider Nurse Practitioner Family; PCP Family Medicine
DX: J02.0 Streptococcal pharyngitis (principal); N61.0 Mastitis without abscess
CPT/HCPCS: 87880; 99213; G0463

== ENCOUNTER 2025-05-16 16:41 | Emergency (ER) | payer BC, SELFPAY ==
[2025-05-16 16:43] VITALS: BP 124/79; PULSE 93; RESP 16; TEMP 36.5; O2SAT 100
--- NOTE | 2025-05-16 17:04 | ED.GENADULT ---
HPI - General Adult General Chief complaint: Urogenital-Female Stated complaint: Urogenital-FemalE Source: patient Mode of arrival: ambulatory Limitations: no limitations History of Present Illness HPI narrative: Patient presents requesting a pelvic exam to determine whether she has a tampon still inserted. She indicates she was menstruating from 05/10-/-05/14/25. She has not been getting much sleep as of late as her child has been keeping her up at night. She wanted to place a tampon in to ensure that she was at the end of her cycle, but could not remember whether she still had one inserted. She has a small amount of pelvic cramping but denies any vaginal bleeding or discharge. She is questioning whether the cramping is her imagining symptoms due to fear of tampon being still in place. No fever, chills, nausea, vomiting. Related Data Home Medications ?Medication ?Instructions ?Recorded ?Confirmed ?Last Taken ?Type No Home Medications 05/16/25 05/16/25 Unknown History Allergies Allergy/AdvReac Type Severity Reaction Status Date / Time amoxicillin AdvReac Intermediate Nausea and Verified 05/16/25 16:42 Vomiting Review of Systems Review of Systems: CONSTITUTIONAL: Denies fever, chills, or sweats. EYES: Denies visual changes, redness, or discharge. ENT: Denies rhinorrhea, congestion, sore throat, or otalgia. CARDIOVASCULAR: Denies chest pain, palpitations, or edema. RESPIRATORY: Denies cough or dyspnea. GASTROINTESTINAL: Denies nausea, vomiting, or diarrhea. GENITOURINARY: Reports mild pelvic cramping. Denies dysuria or hematuria. Denies vaginal bleeding or discharge SKIN: Denies rash or itching. MUSCULOSKELETAL: Denies back pain, joint pain, or myalgia. NEUROLOGIC: Denies headache, numbness, dizziness, or weakness. PSYCHIATRIC: Denies anxiety or depression. [facility] Past Medical History Medical History Left knee pain No active medical problems Surgical History Surgical History History of wisdom tooth extraction H/O dilation and curettage Family History Family History Father Family history of rheumatoid arthritis Grandparent Diabetes mellitus Mother Diabetes mellitus Vaginal cancer Social History Social History Smoking packs per day: 0.25 Smoking cigarettes per day: 5.0 Years smoked: 10 Smoking pack-years: 2.50 Smoking status: Never smoker Tobacco type: cigarettes Second hand tobacco smoke exposure: No Alcohol intake: current Alcohol use details: 20 per month Substance use: never Substance use type: does not use Lack of Transportation: No Lack of Food: Never True Current Housing: I Have Housing Concerned About Future Housing: No Difficulty Paying Gas/Electric Bills: No Difficulty Paying for Meds: No Currently Unemployed: No Education: Master's Degree or Higher Difficulty w/ Childcare or Family Care: No Living arrangements: with family Additional living arrangements comments: [employer] [phone] Occupation/Education: occupation 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 HEAD: Normocephalic, atraumatic. EYES: PERRLA and EOMI. ENT: Nares clear, no rhinorrhea or epistaxis. Mucous membranes moist. Oropharynx without tonsillar hypertrophy exudate or other lesions. Bilateral TMs pearly gaxiola nonbulging NECK: Supple. No adenopathy or masses. No carotid bruits or JVD CHEST: Clear to auscultation. No respiratory distress. No wheezes rales or rhonchi HEART: Regular rate and rhythm. No murmur heard. Normal peripheral pulses. ABDOMEN: Soft, nontender, nondistended, normal active bowel sounds. GENITAL: there is no tampon retained foreign body in the vaginal vault. There is a small amount of milky white discharge present. EXTREMITIES: Normal range of motion. No edema. SKIN: Warm, dry, no rash. NEURO: No focal deficits. Alert and oriented x3. PSYCH: Normal mood and affect. Course Course Emergency Course: This is a 34-year-old female who presented requesting a pelvic exam. There was no retained tampon or foreign body. I did offer to check her for vaginal infections, which she declined. She has no abdominal tenderness on exam. She will follow-up with her primary care provider and go to the ER for worsening abdominal pain or vaginal bleeding. Patient in agreement with plan of care. Level of Care: [facility] Visit Vital Signs Vital signs: Vital Signs Temperature 36.5 C 05/16/25 16:43 Pulse Rate 93 05/16/25 16:43 Respiratory Rate 16 05/16/25 16:43 Blood Pressure 124/79 05/16/25 16:43 Pulse Oximetry 100 05/16/25 16:43 Oxygen Delivery Room Air 05/16/25 16:43 Temperature 36.5 C 05/16/25 16:43 Pulse Rate 93 05/16/25 16:43 Respiratory Rate 16 05/16/25 16:43 Blood Pressure 124/79 05/16/25 16:43 Pulse Oximetry 100 05/16/25 16:43 Oxygen Delivery Room Air 05/16/25 16:43 Medical Decision Making Vital Signs Vital Signs: Vital Signs Temperature 36.5 C 05/16/25 16:43 Pulse Rate 93 05/16/25 16:43 Respiratory Rate 16 05/16/25 16:43 Blood Pressure 124/79 05/16/25 16:43 Pulse Oximetry 100 05/16/25 16:43 Oxygen Delivery Room Air 05/16/25 16:43 Temperature 36.5 C 05/16/25 16:43 Pulse Rate 93 05/16/25 16:43 Respiratory Rate 16 05/16/25 16:43 Blood Pressure 124/79 05/16/25 16:43 Pulse Oximetry 100 05/16/25 16:43 Oxygen Delivery Room Air 05/16/25 16:43 Discharge Plan Discharge Clinical Impression: Visit for pelvic exam Patient Disposition: Home Condition: Stable Instructions: Antibiotic Form, Normal Exam (ED) Patient Language: Uzbek Prescriptions: No Action No Home Medications Follow-up/Referrals: Kendall Grajeda MD [Primary Care Provider, [facility]] Time of Disposition: 17:03
--- OUTSIDE RECORDS SUMMARY | 2025-05-16 17:18 | XMS_ITS | Clinical Summary ---
Author Organization [facility] [employer] Address [address] [place] [address] Care Team Providers Care Client Services Administrator Name Role Phone Kendall Grajeda MD Primary Care Provider [phone] Source Comments [facility] [employer],non-owned Affiliates and Associated Physician Practices is amultiple site organization consisting of ambulatory clinics and hospital sitesin [place], [place], [place] and [place]. This disclosure is being madepursuant to the Care Everywhere program and may not contain all information available regarding this patient. Last updated 18.[facility] [employer] Allergies No known active allergies Immunizations Immunization Administration Dates Next Due INFLUENZA VACCINE, QUADR. (F LUZONE; FLULAVAL; FLUARIX; AFLURIA QUADRIVALENT; 6MO+), 0.5 ML (IIV4) 03/31/2019 TDAP (7yrs+) 03/31/2019 Social History Tobacco Use Types Packs/Day Years Used Date Smoking Tobacco: Never Assessed Comments Unknown Sex and Gender Information Value Date Recorded Sex Assigned at Not on file Legal Sex Female 5:02 PM CDT Gender Identity Not on file Sexual Orientation Not on file Plan of Treatment Health Maintenance Due Date Last Done Comments HIV SCREENING 2006 HEPATITIS C SCREENING 06/25/2009 HEPATITIS B VACCINE (1 of 3 - 19+ 3-dose series) 2010 HPV VACCINE (1 - 3-dose SCDM series) 2018 DEPRESSION SCREENING 07/21/2024 COVID-19 VACCINE ( - 2023-2 5 season) 2025 INFLUENZA VACCINE (#1) 2025 03/31/2019 DTAP/TDAP/TD VACCINES (2 - T d or Tdap) 03/31/2029 03/31/2019 ZOSTER VACCINE (1 of 2) 2041 HIB VACCINE Aged Out No longer eligi ble based on patient's age to complete this topic MENINGOCOCCAL (Group B) VACC INE SHARED DECISION-MAKING Aged Out No longer eligibl e based on patient's age to complete this topic MENINGOCOCCAL GROUPS A/C/Y/W VACCINE Aged Out No longer eligible b ased on patient's age to complete this topic PNEUMOCOCCAL VACCINE Aged Out No long er eligible based on patient's age to complete this topic Insurance Care Teams Client Services Administrator Relationship Specialty Start Date End Date Kendall Grajeda MD [address] [place] [phone] PCP - General Family Medicine 03/31/19
--- OUTSIDE RECORDS SUMMARY | 2025-05-16 17:18 | XMS_ITS | Patient Health Record ---
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
== END 2025-05-16 17:04 | disposition home or self-care (01) ==
PROVIDERS: Emergency Provider Nurse Practitioner; PCP Family Medicine
DX: Z71.1 Person with feared health complaint in whom no diagnosis is made (principal); F17.210 Nicotine dependence, cigarettes, uncomplicated
CPT/HCPCS: 99212; G0463